=== PATIENT | male | born 1935 | race Caucasian/White ===

== ENCOUNTER → 2023-06-05 06:04 | Outpatient (REF) | payer MEDICARE, SELFPAY ==
[2023-06-05 10:19] LABS: INR 1.71; PT 20.4 Sec (11.4-14.6)
== END ==
LOC: HWLAB 06:04
PROVIDERS: ATTENDING PHYSICIAN Internal Medicine Cardiovascular Disease; FAMILY PHYSICIAN Family Medicine
DX: I48.19 Other persistent atrial fibrillation (principal)
CPT/HCPCS: 36415; 85610

== ENCOUNTER → 2023-06-12 06:05 | Outpatient (REF) | payer MEDICARE, SELFPAY ==
[2023-06-12 10:22] LABS: INR 1.88; PT 21.5 Sec (11.4-14.6)
== END ==
LOC: HWLAB 06:05
PROVIDERS: ATTENDING PHYSICIAN Internal Medicine Cardiovascular Disease; FAMILY PHYSICIAN Family Medicine
DX: I48.19 Other persistent atrial fibrillation (principal)
CPT/HCPCS: 36415; 85610

== ENCOUNTER → 2023-06-19 06:05 | Outpatient (REF) | payer MEDICARE, SELFPAY ==
[2023-06-19 14:50] LABS: INR 2.38; PT 25.9 Sec (11.4-14.6)
== END ==
LOC: HWLAB 06:05
PROVIDERS: ATTENDING PHYSICIAN Internal Medicine Cardiovascular Disease; FAMILY PHYSICIAN Family Medicine
DX: I48.19 Other persistent atrial fibrillation (principal)
CPT/HCPCS: 36415; 85610

== ENCOUNTER → 2023-06-26 10:10 | Outpatient (REF) | payer MEDICARE, SELFPAY ==
[2023-06-26 12:00] LABS: INR 2.67; PT 28.3 Sec (11.4-14.6)
== END ==
LOC: HWLAB 10:10
PROVIDERS: ATTENDING PHYSICIAN Internal Medicine; FAMILY PHYSICIAN Family Medicine
DX: I48.91 Unspecified atrial fibrillation (principal)
CPT/HCPCS: 36415; 85610

== ENCOUNTER → 2023-07-03 06:02 | Outpatient (REF) | payer MEDICARE, SELFPAY ==
[2023-07-03 09:55] LABS: INR 2.57; PT 27.5 Sec (11.4-14.6)
== END ==
LOC: HWLAB 06:02
PROVIDERS: ATTENDING PHYSICIAN Internal Medicine Cardiovascular Disease; FAMILY PHYSICIAN Family Medicine
DX: I48.19 Other persistent atrial fibrillation (principal)
CPT/HCPCS: 36415; 85610

== ENCOUNTER → 2023-07-10 06:03 | Outpatient (REF) | payer MEDICARE, SELFPAY ==
[2023-07-10 09:21] LABS: INR 2.22; PT 24.4 Sec (11.4-14.6)
== END ==
LOC: HWLAB 06:03
PROVIDERS: ATTENDING PHYSICIAN Internal Medicine Cardiovascular Disease; FAMILY PHYSICIAN Family Medicine
DX: I48.19 Other persistent atrial fibrillation (principal)
CPT/HCPCS: 36415; 85610

== ENCOUNTER → 2023-08-03 10:23 | Outpatient (REF) | payer MEDICARE, SELFPAY | LOC: HWRAD 10:23 | PROVIDERS: ATTENDING PHYSICIAN Internal Medicine Rheumatology; FAMILY PHYSICIAN Family Medicine | DX: M06.09 Rheumatoid arthritis without rheumatoid factor, multiple sites (principal) | CPT/HCPCS: 72052; 73560 ==

== ENCOUNTER → 2023-08-07 06:27 | Outpatient (REF) | payer MEDICARE, SELFPAY ==
[2023-08-07 09:44] LABS: INR 2.85; PT 29.9 Sec (11.4-14.6)
== END ==
LOC: HWRAD 06:27
PROVIDERS: ATTENDING PHYSICIAN Internal Medicine Rheumatology; FAMILY PHYSICIAN Family Medicine; REFERRING PHYSICIAN Internal Medicine Cardiovascular Disease
DX: M81.0 Age-related osteoporosis without current pathological fracture (principal); I48.19 Other persistent atrial fibrillation
CPT/HCPCS: 36415; 77080; 85610

== ENCOUNTER → 2023-09-04 06:10 | Outpatient (REF) | payer MEDICARE, SELFPAY ==
[2023-09-04 09:19] LABS: PT 24.3 Sec (11.4-14.6)
== END ==
LOC: HWLAB 06:10
PROVIDERS: ATTENDING PHYSICIAN Internal Medicine Cardiovascular Disease; FAMILY PHYSICIAN Family Medicine
DX: I48.19 Other persistent atrial fibrillation (principal)
CPT/HCPCS: 36415; 85610

== ENCOUNTER → 2023-09-20 06:02 | Outpatient (REF) | payer MEDICARE, SELFPAY ==
[2023-09-20 10:15] LABS: ALT (SGPT) 21 U/L (0-50); AST (SGOT) 26 U/L (17-59); Albumin 3.6 g/dl (3.5-5.0); Alkaline Phosphatase 86 U/L (38-126); Blood Urea Nitrogen 27 mg/dl (9-20); Carbon Dioxide 25 mmol/L (22-30); Chloride 106 mmol/L (98-107); Glucose 82 mg/dl (70-99); Potassium 4.5 mmol/L (3.5-5.1); Sodium 139 mmol/L (135-145); Total Bilirubin 0.6 mg/dl (0.2-1.3); Total Protein 6.2 g/dl (6.3-8.2)
[2023-09-20 10:44] LABS: TSH Reflex To Free T4 8.58 uIU/ml (0.47-4.68)
[2023-09-20 11:13] LABS: Free T4 1.17 ng/dl (0.78-2.19)
== END ==
LOC: HWLAB 06:02
PROVIDERS: ATTENDING PHYSICIAN Internal Medicine Cardiovascular Disease; FAMILY PHYSICIAN Family Medicine
DX: I48.19 Other persistent atrial fibrillation (principal); Z79.899 Other long term (current) drug therapy
CPT/HCPCS: 36415; 80053; 84439; 84443

== ENCOUNTER → 2023-09-25 06:02 | Outpatient (REF) | payer MEDICARE, SELFPAY ==
[2023-09-25 09:27] LABS: INR 2.35; PT 25.6 Sec (11.4-14.6)
== END ==
LOC: HWLAB 06:02
PROVIDERS: ATTENDING PHYSICIAN Internal Medicine Cardiovascular Disease; FAMILY PHYSICIAN Family Medicine
DX: I48.19 Other persistent atrial fibrillation (principal)
CPT/HCPCS: 36415; 85610

== ENCOUNTER → 2023-10-23 06:02 | Outpatient (REF) | payer MEDICARE, SELFPAY ==
[2023-10-23 10:46] LABS: INR 2.06; PT 23.1 Sec (11.4-14.6)
== END ==
LOC: HWLAB 06:02
PROVIDERS: ATTENDING PHYSICIAN Internal Medicine Cardiovascular Disease; FAMILY PHYSICIAN Family Medicine
DX: I48.0 Paroxysmal atrial fibrillation (principal); I48.19 Other persistent atrial fibrillation
CPT/HCPCS: 36415; 85610

== ENCOUNTER → 2023-11-20 06:04 | Outpatient (REF) | payer MEDICARE, SELFPAY ==
[2023-11-20 10:00] LABS: INR 3.08; PT 31.8 Sec (11.4-14.6)
== END ==
LOC: HWLAB 06:04
PROVIDERS: ATTENDING PHYSICIAN Internal Medicine Cardiovascular Disease; FAMILY PHYSICIAN Family Medicine
DX: I48.0 Paroxysmal atrial fibrillation (principal)
CPT/HCPCS: 36415; 85610

== ENCOUNTER → 2023-12-18 06:05 | Outpatient (REF) | payer MEDICARE, SELFPAY ==
[2023-12-18 09:51] LABS: INR 3.58; PT 35.8 Sec (11.4-14.6)
== END ==
LOC: HWLAB 06:05
PROVIDERS: ATTENDING PHYSICIAN Internal Medicine Cardiovascular Disease; FAMILY PHYSICIAN Family Medicine
DX: I48.19 Other persistent atrial fibrillation (principal)
CPT/HCPCS: 36415; 85610

== ENCOUNTER → 2023-12-25 06:05 | Outpatient (REF) | payer MEDICARE, SELFPAY ==
[2023-12-25 09:15] LABS: INR 3.03; PT 31.4 Sec (11.4-14.6)
== END ==
LOC: HWLAB 06:05
PROVIDERS: ATTENDING PHYSICIAN Internal Medicine Cardiovascular Disease; FAMILY PHYSICIAN Family Medicine
DX: I48.19 Other persistent atrial fibrillation (principal)
CPT/HCPCS: 36415; 85610

== ENCOUNTER → 2024-01-01 06:03 | Outpatient (REF) | payer MEDICARE, SELFPAY ==
[2024-01-01 09:44] LABS: INR 2.31; PT 25.3 Sec (11.4-14.6)
== END ==
LOC: HWLAB 06:03
PROVIDERS: ATTENDING PHYSICIAN Internal Medicine Cardiovascular Disease; FAMILY PHYSICIAN Family Medicine
DX: I48.19 Other persistent atrial fibrillation (principal)
CPT/HCPCS: 36415; 85610

== ENCOUNTER → 2024-01-08 06:03 | Outpatient (REF) | payer MEDICARE, SELFPAY ==
[2024-01-08 10:38] LABS: PT 24.3 Sec (11.4-14.6)
== END ==
LOC: HWLAB 06:03
PROVIDERS: ATTENDING PHYSICIAN Internal Medicine Cardiovascular Disease; FAMILY PHYSICIAN Family Medicine
DX: I48.19 Other persistent atrial fibrillation (principal)
CPT/HCPCS: 36415; 85610

== ENCOUNTER → 2024-01-15 06:04 | Outpatient (REF) | payer MEDICARE, SELFPAY ==
[2024-01-15 09:42] LABS: INR 2.28
== END ==
LOC: HWLAB 06:04
PROVIDERS: ATTENDING PHYSICIAN Internal Medicine Cardiovascular Disease; FAMILY PHYSICIAN Family Medicine
DX: I48.19 Other persistent atrial fibrillation (principal)
CPT/HCPCS: 36415; 85610

== ENCOUNTER → 2024-02-12 06:04 | Outpatient (REF) | payer MEDICARE, SELFPAY ==
[2024-02-12 10:08] LABS: PT 24.3 Sec (11.4-14.6)
== END ==
LOC: HWLAB 06:04
PROVIDERS: ATTENDING PHYSICIAN Internal Medicine Cardiovascular Disease; FAMILY PHYSICIAN Family Medicine
DX: I48.19 Other persistent atrial fibrillation (principal)
CPT/HCPCS: 36415; 85610

== ENCOUNTER → 2024-03-11 06:03 | Outpatient (REF) | payer MEDICARE, SELFPAY ==
[2024-03-11 10:23] LABS: INR 2.36; PT 25.7 Sec (11.4-14.6)
== END ==
LOC: HWLAB 06:03
PROVIDERS: ATTENDING PHYSICIAN Internal Medicine Cardiovascular Disease; FAMILY PHYSICIAN Family Medicine
DX: I48.19 Other persistent atrial fibrillation (principal)
CPT/HCPCS: 36415; 85610

== ENCOUNTER → 2024-04-08 06:04 | Outpatient (REF) | payer MEDICARE, SELFPAY ==
[2024-04-08 09:53] LABS: INR 2.43; PT 26.5 Sec (11.4-14.6)
== END ==
LOC: HWLAB 06:04
PROVIDERS: ATTENDING PHYSICIAN Internal Medicine Cardiovascular Disease; FAMILY PHYSICIAN Family Medicine
DX: I48.19 Other persistent atrial fibrillation (principal)
CPT/HCPCS: 36415; 85610

== ENCOUNTER → 2024-05-05 06:10 | Outpatient (REF) | payer MEDICARE, SELFPAY ==
[2024-05-05 09:30] LABS: Urine Albumin Negative (Neg - Trace); Urine Bilirubin Negative (Negative); Urine Character Very Cloudy (Clear); Urine Color Yellow; Urine Glucose Negative (Negative); Urine Ketone Negative (Negative); Urine Leukocyte 1+ (Negative); Urine Nitrite Negative (Negative); Urine Occult Blood Negative (Negative); Urine Urobilinogen Negative (Neg - 1+)
[2024-05-05 09:37] LABS: ALT (SGPT) 29 U/L (0-50); AST (SGOT) 28 U/L (17-59); Albumin 3.9 g/dl (3.5-5.0); Alkaline Phosphatase 80 U/L (38-126); Blood Urea Nitrogen 27 mg/dl (9-20); Calcium 8.7 mg/dl (8.4-10.2); Carbon Dioxide 28 mmol/L (22-30); Chloride 107 mmol/L (98-107); Glucose 88 mg/dl (70-99); HDL Cholesterol 65 mg/dl; LDL Cholesterol, Calculated 43 mg/dl; PT 31.5 Sec (11.4-14.6); Potassium 4.4 mmol/L (3.5-5.1); Sodium 142 mmol/L (135-145); Total Bilirubin 0.5 mg/dl (0.2-1.3); Total Cholesterol 123 mg/dl (50-199); Total Protein 6.4 g/dl (6.3-8.2); Triglyceride 75 mg/dl (10-149); Very Low Density Lipoprotein 15 mg/dl (0-30); eGFR 41.44
[2024-05-05 09:54] LABS: % Basophils 0.5 % (0-2); % Eosinophils 1.8 % (0-6); % Immature Granulocytes 0.4 % (0-0.5); % Lymphocytes 18.4 % (20.5-51.1); % Monocytes 9.3 % (1.7-9.3); % Neutrophils 69.6 % (42.2-75.2); Absolute Eosinophils 0.1 10^3/uL (0-0.7); Absolute Lymphocytes 1.4 10^3/uL (1.2-3.4); Absolute Monocytes 0.7 10^3/uL (0.1-0.6); Absolute Neutrophils 5.3 10^3/uL (1.4-6.5); Hematocrit 35.7 % (39.0-52.0); Hemoglobin 11.6 g/dL (13.0-18.0); Mean Corp Hgb Conc. 32.5 g/dL (33.0-37.0); Mean Corpuscular Hgb 33.7 pg (27.0-31.0); Mean Corpuscular Volume 103.8 fL (80.0-94.0); Nucleated Red Blood Cells % 0 % (-); Platelet Count 171 10^3/uL (130-400); Red Blood Cell Count 3.44 10^6/uL (4.70-6.10); Red Cell Dist. Width 12.5 % (11.5-14.5); White Blood Cell Count 7.7 10^3/uL (4.8-10.8)
[2024-05-05 10:19] LABS: Glycohemoglobin (HgbA1c) 5.5 % (4.0-5.6)
[2024-05-05 10:39] LABS: Urine Bacteria Few (Negative); Urine Red Blood Cell 0-2 /HPF (0-2); Urine Squamous Cell 0-2 /LPF (Few); Urine White Cell 26-30 /HPF (0-5)
[2024-05-05 11:03] LABS: PSA, Total - Screen 0.67 ng/ml (0.0-4.0)
[2024-05-05 11:31] LABS: Free T4 1.14 ng/dl (0.78-2.19)
== END ==
LOC: HWLAB 06:10
PROVIDERS: ATTENDING PHYSICIAN Internal Medicine Cardiovascular Disease; FAMILY PHYSICIAN Family Medicine
DX: I10 Essential (primary) hypertension (principal); D64.9 Anemia, unspecified; E03.9 Hypothyroidism, unspecified; I25.10 Atherosclerotic heart disease of native coronary artery without angina pectoris; M05.79 Rheumatoid arthritis with rheumatoid factor of multiple sites without organ or systems involvement; E78.5 Hyperlipidemia, unspecified; R73.01 Impaired fasting glucose; Z00.01 Encounter for general adult medical examination with abnormal findings; I48.19 Other persistent atrial fibrillation; Z12.5 Encounter for screening for malignant neoplasm of prostate
CPT/HCPCS: 36415; 80053; 80061; 81003; 81015; 82306; 83036; 84439; 84443; 85025; 85610; 87077; 87086; 87186; G0103

== ENCOUNTER → 2024-05-27 11:16 | Outpatient (REF) | payer MEDICARE, SELFPAY | LOC: HWRCS 11:16 | PROVIDERS: ATTENDING PHYSICIAN Internal Medicine Cardiovascular Disease; FAMILY PHYSICIAN Internal Medicine | DX: I50.32 Chronic diastolic (congestive) heart failure (principal); I34.0 Nonrheumatic mitral (valve) insufficiency | CPT/HCPCS: 93306 ==

== ENCOUNTER → 2024-06-05 06:04 | Outpatient (REF) | payer MEDICARE, SELFPAY ==
[2024-06-05 10:30] LABS: PT 24.9 Sec (11.4-14.6)
== END ==
LOC: HWLAB 06:04
PROVIDERS: ATTENDING PHYSICIAN Internal Medicine Cardiovascular Disease; FAMILY PHYSICIAN Family Medicine
DX: I48.19 Other persistent atrial fibrillation (principal)
CPT/HCPCS: 36415; 85610

== ENCOUNTER → 2024-06-17 06:06 | Outpatient (REF) | payer MEDICARE, SELFPAY ==
[2024-06-17 10:17] LABS: % Basophils 0.5 % (0-2); % Eosinophils 2.7 % (0-6); % Immature Granulocytes 0.3 % (0-0.5); % Lymphocytes 19.3 % (20.5-51.1); % Monocytes 8.8 % (1.7-9.3); % Neutrophils 68.4 % (42.2-75.2); Absolute Eosinophils 0.2 10^3/uL (0-0.7); Absolute Lymphocytes 1.2 10^3/uL (1.2-3.4); Absolute Monocytes 0.6 10^3/uL (0.1-0.6); Absolute Neutrophils 4.4 10^3/uL (1.4-6.5); Hematocrit 32.6 % (39.0-52.0); Hemoglobin 10.6 g/dL (13.0-18.0); Mean Corp Hgb Conc. 32.5 g/dL (33.0-37.0); Mean Corpuscular Hgb 33.1 pg (27.0-31.0); Mean Corpuscular Volume 101.9 fL (80.0-94.0); Mean Platelet Volume 11.1 fL (7.4-10.4); Nucleated Red Blood Cells % 0 % (-); Platelet Count 183 10^3/uL (130-400); Red Cell Dist. Width 12.5 % (11.5-14.5); White Blood Cell Count 6.4 10^3/uL (4.8-10.8)
[2024-06-17 11:26] LABS: TSH Reflex To Free T4 9.03 uIU/ml (0.47-4.68)
[2024-06-17 11:31] LABS: Blood Urea Nitrogen 29 mg/dl (9-20); Calcium 8.7 mg/dl (8.4-10.2); Carbon Dioxide 24 mmol/L (22-30); Chloride 108 mmol/L (98-107); Glucose 83 mg/dl (70-99); Potassium 4.5 mmol/L (3.5-5.1); Sodium 140 mmol/L (135-145); eGFR 41.44
[2024-06-17 11:56] LABS: Free T4 1.39 ng/dl (0.78-2.19)
== END ==
LOC: HWLAB 06:06
PROVIDERS: ATTENDING PHYSICIAN Family Medicine
DX: D64.9 Anemia, unspecified (principal); R94.6 Abnormal results of thyroid function studies
CPT/HCPCS: 36415; 80048; 84439; 84443; 85025

== ENCOUNTER → 2024-07-03 06:07 | Outpatient (REF) | payer MEDICARE, SELFPAY ==
[2024-07-03 09:55] LABS: Iron 108 ug/dl (49-181)
[2024-07-03 09:56] LABS: % Basophils 0.7 % (0-2); % Eosinophils 2.4 % (0-6); % Immature Granulocytes 0.5 % (0-0.5); % Lymphocytes 20.6 % (20.5-51.1); % Monocytes 11.5 % (1.7-9.3); % Neutrophils 64.3 % (42.2-75.2); Absolute Eosinophils 0.1 10^3/uL (0-0.7); Absolute Lymphocytes 1.2 10^3/uL (1.2-3.4); Absolute Monocytes 0.7 10^3/uL (0.1-0.6); Absolute Neutrophils 3.8 10^3/uL (1.4-6.5); Hematocrit 33.6 % (39.0-52.0); Mean Corp Hgb Conc. 32.7 g/dL (33.0-37.0); Mean Corpuscular Hgb 33.3 pg (27.0-31.0); Mean Corpuscular Volume 101.8 fL (80.0-94.0); Mean Platelet Volume 10.9 fL (7.4-10.4); Nucleated Red Blood Cells % 0 % (-); Platelet Count 164 10^3/uL (130-400); Red Cell Dist. Width 12.5 % (11.5-14.5); White Blood Cell Count 5.9 10^3/uL (4.8-10.8)
[2024-07-03 10:05] LABS: INR 1.74; PT 20.9 Sec (11.4-14.6)
[2024-07-03 11:10] LABS: Ferritin 44.2 ng/ml (17.9-464.0)
[2024-07-03 11:32] LABS: Free T4 1.26 ng/dl (0.78-2.19)
== END ==
LOC: HWLAB 06:07
PROVIDERS: ATTENDING PHYSICIAN Internal Medicine Cardiovascular Disease; FAMILY PHYSICIAN Family Medicine
DX: D64.9 Anemia, unspecified (principal); E03.9 Hypothyroidism, unspecified; I48.19 Other persistent atrial fibrillation
CPT/HCPCS: 36415; 82728; 83540; 84439; 84443; 85025; 85610

== ENCOUNTER → 2024-08-05 06:25 | Outpatient (REF) | payer MEDICARE, SELFPAY ==
[2024-08-05 09:38] LABS: INR 2.42; PT 26.3 Sec (11.4-14.6)
[2024-08-05 10:00] LABS: TSH Reflex To Free T4 5.78 uIU/ml (0.47-4.68)
[2024-08-05 10:29] LABS: Free T4 1.45 ng/dl (0.78-2.19)
== END ==
LOC: HWLAB 06:25
PROVIDERS: ATTENDING PHYSICIAN Internal Medicine Cardiovascular Disease; FAMILY PHYSICIAN Family Medicine
DX: E03.9 Hypothyroidism, unspecified (principal); I48.19 Other persistent atrial fibrillation
CPT/HCPCS: 36415; 84439; 84443; 85610

== ENCOUNTER → 2024-09-02 06:10 | Outpatient (REF) | payer MEDICARE, SELFPAY ==
[2024-09-02 09:42] LABS: PT 26.2 Sec (11.4-14.6)
== END ==
LOC: HWLAB 06:10
PROVIDERS: ATTENDING PHYSICIAN Internal Medicine Cardiovascular Disease; FAMILY PHYSICIAN Family Medicine
DX: I48.19 Other persistent atrial fibrillation (principal)
CPT/HCPCS: 36415; 85610

== ENCOUNTER → 2024-09-15 06:07 | Outpatient (REF) | payer MEDICARE, SELFPAY ==
[2024-09-15 09:46] LABS: % Basophils 0.5 % (0-2); % Eosinophils 2.1 % (0-6); % Immature Granulocytes 0.2 % (0-0.5); % Monocytes 10.6 % (1.7-9.3); % Neutrophils 64.6 % (42.2-75.2); Absolute Eosinophils 0.1 10^3/uL (0-0.7); Absolute Lymphocytes 1.3 10^3/uL (1.2-3.4); Absolute Monocytes 0.6 10^3/uL (0.1-0.6); Absolute Neutrophils 3.7 10^3/uL (1.4-6.5); Hematocrit 31.1 % (39.0-52.0); Hemoglobin 10.5 g/dL (13.0-18.0); Mean Corp Hgb Conc. 33.8 g/dL (33.0-37.0); Mean Corpuscular Hgb 33.5 pg (27.0-31.0); Mean Corpuscular Volume 99.4 fL (80.0-94.0); Mean Platelet Volume 10.7 fL (7.4-10.4); Nucleated Red Blood Cells % 0 % (-); Platelet Count 165 10^3/uL (130-400); Red Blood Cell Count 3.13 10^6/uL (4.70-6.10); Red Cell Dist. Width 12.4 % (11.5-14.5); White Blood Cell Count 5.7 10^3/uL (4.8-10.8)
[2024-09-15 10:05] LABS: ALT (SGPT) 18 U/L (0-50); AST (SGOT) 22 U/L (17-59); Albumin 3.8 g/dl (3.5-5.0); Alkaline Phosphatase 74 U/L (38-126); Blood Urea Nitrogen 28 mg/dl (9-20); Calcium 8.5 mg/dl (8.4-10.2); Carbon Dioxide 27 mmol/L (22-30); Chloride 107 mmol/L (98-107); Glucose 83 mg/dl (70-99); HDL Cholesterol 58 mg/dl; LDL Cholesterol, Calculated 38 mg/dl; Potassium 4.4 mmol/L (3.5-5.1); Sodium 141 mmol/L (135-145); Total Bilirubin 0.6 mg/dl (0.2-1.3); Total Cholesterol 112 mg/dl (50-199); Triglyceride 81 mg/dl (10-149); Very Low Density Lipoprotein 16 mg/dl (0-30); eGFR 44.78
[2024-09-15 10:29] LABS: PSA, Total - Screen 0.72 ng/ml (0.0-4.0)
[2024-09-15 13:24] LABS: Glycohemoglobin (HgbA1c) 5.5 % (4.0-5.6)
== END ==
LOC: HWLAB 06:07
PROVIDERS: ATTENDING PHYSICIAN Family Medicine
DX: I10 Essential (primary) hypertension (principal); D64.9 Anemia, unspecified; E03.9 Hypothyroidism, unspecified; I25.10 Atherosclerotic heart disease of native coronary artery without angina pectoris; E78.5 Hyperlipidemia, unspecified; Z12.5 Encounter for screening for malignant neoplasm of prostate
CPT/HCPCS: 36415; 80053; 80061; 83036; 84443; 85025; G0103

== ENCOUNTER → 2024-09-30 06:13 | Outpatient (REF) | payer MEDICARE, SELFPAY ==
[2024-09-30 10:27] LABS: INR 2.49
== END ==
LOC: HWLAB 06:13
PROVIDERS: ATTENDING PHYSICIAN Internal Medicine Cardiovascular Disease
DX: I48.19 Other persistent atrial fibrillation (principal)
CPT/HCPCS: 36415; 85610

== ENCOUNTER → 2024-10-28 06:07 | Outpatient (REF) | payer MEDICARE, SELFPAY ==
[2024-10-28 08:52] LABS: INR 2.34; PT 25.7 Sec (11.4-14.6)
== END ==
LOC: HWLAB 06:07
PROVIDERS: ATTENDING PHYSICIAN Internal Medicine Cardiovascular Disease
DX: I48.19 Other persistent atrial fibrillation (principal)
CPT/HCPCS: 36415; 85610

== ENCOUNTER → 2024-11-04 11:06 | Outpatient (REF) | payer MEDICARE, SELFPAY | LOC: HWRAD 11:06 | PROVIDERS: ATTENDING PHYSICIAN Internal Medicine Rheumatology | DX: M89.49 Other hypertrophic osteoarthropathy, multiple sites (principal) | CPT/HCPCS: 72100; 72200 ==

== ENCOUNTER 2024-11-23 05:52 | Emergency (ER) | payer MEDICARE, SELFPAY ==
[2024-11-23 05:56] VITALS: BP 164/75
--- NOTE | 2024-11-23 08:08 | ED.GENMED ---
History of Present Illness
General
Chief Complaint: Back Pain
Source: patient and family (son Derick)
Exam Limitations: none
Time Seen by Provider: 11/23/24 07:20
Nursing documentation reviewed up to this point in time: agreed with
History of Present Illness
History of Present Illness:
89 yo male with h/o LAD stent, on Coumadin, GERD, Hypothyroid, Anemia, Neuorgenic bladder: self catheterizes 2 x a day, Laminectomy L4-5 1967, Discectomy 1988, Bilat hip replacement 2003, L4-5 laminectomy 2006, L knee replacement 2017. Pt present
for pain across his lower back since 10/29 after a fall on steps. The pain is reported to be 8 out of 10 in severity. The patient describes the pain as dull and aching, primarily located in the lower back area. It exacerbates when transitioning from
a resting position, such as lying in bed, to sitting up. He has trouble getting out of bed mostly. The patient notes that sitting in a recliner provides some relief while lying down and attempting to get up is particularly painful.
Denies fever. Denies abdominal pain.
Saw PCP and has appt for MRI in 6 days. Also got rx for Prednisone taper but he does not want to use it due to the side effect of reacting with the Coumadin possibly increased bleeding with stroke.
Has >8 yr old rx for Hydrocodone which he took one pill and it helped for 'about 4 hours.' He does not want to take more for fear of constipation.
Spoke with son Derick, updated.
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
Pt has taken Miralax twice since then and has had several good BMs.
Past History
Past History
ED Past Medical History: CAD, GERD, HTN, Hypercholesterolemia, Hypothyroidism and Other (Arthritis)
ED Past Surgical History: Cardiac (PTCA with stent 2013) and Orthopedic (Laminectomy L4-5 1967, Discectomy 1988, Bilat hip replacement 2003, L4-5 laminectomy 2006, L knee replacement 2018. )
Patient has exhibited threatening behavior?: No
PSI?: No
Social History
Tobacco: Non-smoker
Alcohol: None
Personal:
Living: with family
Employment: Retired
Family History
Family History: Other (Noncontributory)
Review of Systems
Review of Systems
Allergies reviewed?: Yes
All Other Systems: ROS reviewed and negative except as documented in HPI and ROS
Constitutional: Denies fever or chills
Respiratory: Denies trouble breathing
Cardiac: Denies chest pain
ABD/GI: Denies abdominal pain or nausea
: Reports other (neurogenic bladder, self catheterizes twice daily)
Musculoskeletal: Reports back pain; Denies edema
Skin: Reports no symptoms
Neurological: Denies weakness
Phy Exam
Physical Exam
Physical Exam:
GENERAL: No acute distress. A&Ox3.
CONSTITUTIONAL: Afebrile.
EYES: clear, conjunctivae normal
ENMT: moist mucus membranes, Pharynx nl
RESPIRATORY: Regular respirations, nonlabored, lungs clear.
CARDIOVASCULAR: Regular rate and rhythm, no murmurs, no rubs.
GI: Soft, nontender, normal BS
Rectal: minimal soft brown stool, heme neg
MUSCULOSKELETAL: Moves with ease. Well perfused. Mild tenderness across lower back, no specific spinal bony tenderness. Neg bilateral SLR.
SKIN: Warm, dry, pink
PSYCH: Normal mood and affect. Well kept, interactive and appropriate
NEUROLOGIC: Awake, alert and oriented. No focal neurological deficits. Strength equal throughout. Equal patellare reflexes. Ambulating well.
Course
Orders/Labs/Results
Orders:
Orders
11/23/24 08:33
Case Management Consult ONCE
Case Management Consult: Discharge Planning
Durable Medical Equip
Comment: Pt and family need hospital bed and are asking for help in obtaining one. He is ready for
discharge...son on way to pick him up, hoping to speak with you.
11/23/24 08:54
Acetaminophen Urgent
Comment: ADDON
Complete Blood Count/With Diff Urgent
Comprehensive Metabolic Panel Urgent
Prothrombin Time Urgent
11/23/24 09:09
Dexamethasone [Decadron] 10 mg PO NOW STA
11/23/24 09:44
Add On- LAB Urgent
Tests Added?: acetaminophen level
Abnormal Lab Results
11/23/24
08:54
RBC 2.84 L 10^6/uL
(4.70-6.10)
Hgb 9.5 L g/dL
(13.0-18.0)
Hct 27.6 L %
(39.0-52.0)
MCV 97.2 H fL
(80.0-94.0)
MCH 33.5 H pg
(27.0-31.0)
Absolute Neuts (auto) 6.6 H 10^3/uL
(1.4-6.5)
Absolute Lymphs (auto) 0.8 L 10^3/uL
(1.2-3.4)
Neutrophils % 82.0 H %
(42.2-75.2)
Lymphocytes % 10.3 L %
(20.5-51.1)
PT 58.5 H Sec
(11.4-14.6)
INR 6.92 H*
Sodium 133 L mmol/L
(135-145)
Total Protein 5.7 L g/dl
(6.3-8.2)
Albumin 3.2 L g/dl
(3.5-5.0)
Acetaminophen < 10 L ug/ml
(10-30)
11/23/24 08:54
11/23/24 08:54
Vital Signs
Initial and Last Documented VS:
Initial Vital Signs
Temp Pulse Resp BP Pulse Ox
98.2 F 72 16 164/75 97
11/23/24 05:56 11/23/24 05:56 11/23/24 05:56 11/23/24 05:56 11/23/24 05:56
Last Documented Vital Signs
Temp Pulse Resp BP Pulse Ox
98.4 F 74 18 124/74 98
11/23/24 11:18 11/23/24 11:18 11/23/24 11:18 11/23/24 11:18 11/23/24 11:18
MDM/Problems Addressed
Differential Diagnosis Includes:
1. Lumbar disc herniation
2. Lumbar spondylosis
3. Sciatica
4. Spinal stenosis
5. Osteoarthritis
6. Compression fracture
7. Muscle strain
8. Facet joint syndrome
9. Ankylosing spondylitis
10. Metastatic bone disease
MDM/Problems Addressed:
89 yo male with h/o LAD stent, on Coumadin, GERD, Hypothyroid, Anemia, Neuorgenic bladder: self catheterizes 2 x a day, Laminectomy L4-5 1967, Discectomy 1988, Bilat hip replacement 2003, L4-5 laminectomy 2006, L knee replacement 2018. Pt present
for pain across his lower back since 10/29 after a fall on steps. The pain is reported to be 8 out of 10 in severity. The patient describes the pain as dull and aching, primarily located in the lower back area. It exacerbates when transitioning from
a resting position, such as lying in bed, to sitting up. He has trouble getting out of bed mostly. The patient notes that sitting in a recliner provides some relief while lying down and attempting to get up is particularly painful.
Denies fever. Denies abdominal pain.
Saw PCP and has appt for MRI in 6 days. Also got rx for Prednisone taper but he does not want to use it due to the side effect of reacting with the Coumadin possibly increased bleeding with stroke.
Has >8 yr old rx for Hydrocodone which he took one pill and it helped for 'about 4 hours.' He does not want to take more for fear of constipation.
Has been taking Tylenol 1200 mg TID for past 2 months
Spoke with son Derick, daxa.
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
Pt has taken Miralax twice since then and has had several good BMs.
Afebrile, NAD
Pt got out of bed, ambulated to BR and back, got back into bed independently and with no significant indication of pain. He winced a little swinging his legs back up into the bed. He felt the pain going from sit to stand off toilet but nothing
significant. All this while I was with him.
spoke with son Derick who requests help in obtaining hospital bed for home. His PCP reportedly filled out the paperwork
Consulted Case Management who sent a copy of medical necessity
CBC with no clinically significant abnormality (Hgb 9.5, stool heme neg.)
CMP: Normal
INR: 6.92 (On Coumadin and has been taking 1200 mg Tylenol TID for past 2 months, denies taking more than 3600 mg in a 24 hours period, denies any confusion over his coumadin regimen, denies eating any food that would affect INR)
DC'd Decadron order as this can increase INR
There is no sign of bleeding, stool heme neg.
Case management in and working on getting a home hospital bed
Tylenol level is <10
11:00 a.m.
Tyenol level is '0'
Plan: Stop Coumadin (Warfarin)
Get INR checked on 11/[address] Childs to have someone from office reach out to you regarding your INR on Sunday and further instruction on taking the Warfarin. If you don't hear from them by Sunday, call the office Sunday morning
I sent a prescription to your pharmacy for OxyContin 5 mg every 8 hours as needed for pain.
Your Tylenol level is zero. It is not the Tylenol affecting your liver. Ask you primary doctor or [employer] if it's ok to continue Tylenol
According to [employer], your hospital bed should be delivered Sunday IF insurance approves
Medical Request for home hospital bed: Pt needs hospital bed due to inability to get OOB due to low back pain. He requires positioning of body in ways not feasible with an ordinary bed and needs alleviation of pain
*Pulse Oximetry
SaO2: 97
Oxygen Mode of Delivery: Room air
Patient hypoxic: no
*Critical Care Note
Total Time (30-74mins, 75-104mins- exclusive of procedures): Not Applicable
ED Attending Note
-
Portions of this chart may have been created with voice recognition software.� Occasional wrong word or��sound alike� substitutions may have occurred due to the inherent limitations of voice recognition software.
Discharge Plan
Departure
Patient Disposition: Home (Routine Discharge)
Date of Disposition: 11/23/24
Time of Disposition: 10:58
Patient with high blood pressure during this ER visit?: No
Condition: Good
Discharge Problem:
Coumadin toxicity, Low back pain
Instructions: Prothrombin time and INR (PT/INR), Low back pain - ED discharge instructions
Prescriptions:
New
oxycodone 5 mg capsule
5 mg PO Q8H PRN (Reason: Pain) Qty: 10 0RF
No Action
atorvastatin 40 MG tablet
40 mg PO DAILY
pantoprazole 40 MG tablet,delayed release (DR/EC)
40 mg PO DAILY
latanoprost 0.005 % Drops
1 drp LEFT EYE HS
furosemide 40 mg Tablet
40 mg PO DAILY Qty: 30 0RF
amiodarone [Pacerone] 200 mg tablet
200 mg PO DAILY
metoprolol succinate 50 mg Tablet Extended Release 24 Hr
50 mg PO DAILY
warfarin 2.5 mg Tablet
2.5 mg PO DAILY
Rx Instructions:
Two tabs (5mg) on Sundays
spironolactone 25 mg Tablet
25 mg PO DAILY
tamsulosin 0.4 mg Capsule
0.4 mg PO DAILY
levothyroxine 112 mcg Tablet
112 mcg PO DAILY
sulfamethoxazole-trimethoprim 800-160 mg Tablet
1 tab PO BID 4 Days Qty: 8 0RF
ferrous sulfate 325 mg (65 mg iron) tablet
325 mg PO NOON Qty: 30 0RF
ascorbic acid (vitamin C) [Vitamin C] 500 mg tablet
500 mg PO NOON Qty: 30 0RF
Referrals:
Colton Lee CRNP [Family Provider]
Activity Restrictions/Additional Instructions:
As we discussed:
Stop Coumadin (Warfarin)
Get INR checked on 11/[address] Childs to have someone from office reach out to you regarding your INR on Sunday and further instruction on taking the Warfarin. If you don't hear from them by Sunday, call the office Sunday
I sent a prescription to your pharmacy for OxyContin 5 mg every 8 hours as needed for pain.
Your Tylenol level is zero. It is not the Tylenol affecting your liver. Ask you primary doctor or [employer] if it's ok to continue Tylenol
According to [employer], your hospital bed should be delivered Sunday IF insurance approves
Interventions
Interventions:
*Risk Screen - Suicide Last Done: 11/23/24 05:56
*General Assessment Last Done: 11/23/24 05:56
*Neglect/Abuse Screening Last Done: 11/23/24 05:56
*ED- Fall Risk Assessment Last Done: 11/23/24 11:18
*ED COVID-19 Vaccine History Last Done: 11/23/24 11:18
*Nursing Disposition Last Done: 11/23/24 11:18
ED-Musculoskeletal Assessment Last Done: 11/23/24 08:13
Discharge Date and Time
Discharge Date/Time: 11/23/24 11:18
Print Language: ALBANIAN
[2024-11-23 09:14] LABS: Hematocrit 27.6 % (39.0-52.0); Hemoglobin 9.5 g/dL (13.0-18.0); Mean Corp Hgb Conc. 34.4 g/dL (33.0-37.0); Mean Corpuscular Volume 97.2 fL (80.0-94.0); Nucleated Red Blood Cells % 0 % (-); Platelet Count 222 10^3/uL (130-400); Red Cell Dist. Width 13.0 % (11.5-14.5)
[2024-11-23 09:23] LABS: PT 58.5 Sec (11.4-14.6)
[2024-11-23 09:33] LABS: INR 6.92
[2024-11-23 09:38] LABS: ALT (SGPT) 13 U/L (0-50); AST (SGOT) 18 U/L (17-59); Albumin 3.2 g/dl (3.5-5.0); Alkaline Phosphatase 94 U/L (38-126); Blood Urea Nitrogen 20 mg/dl (9-20); Calcium 8.5 mg/dl (8.4-10.2); Carbon Dioxide 25 mmol/L (22-30); Chloride 104 mmol/L (98-107); Glucose 87 mg/dl (70-99); Potassium 4.2 mmol/L (3.5-5.1); Sodium 133 mmol/L (135-145); Total Protein 5.7 g/dl (6.3-8.2); eGFR > 60.00
--- NOTE | 2024-11-23 10:16 | CM ---
Met with patient, and son, Derick, at bedside in the ED
CM Consult for Hospital Bed completed; order/clinicals, demographics faxed to [facility] # [phone]; son, Sotero, is primary contact # [phone]
Pharmacy verified: [facility] @ [address] [place] [address]
Patient lives w/ ; split level home; 2 steps to enter; 6 steps between levels; powder room on lower level; upper level bathroom has walk-in shower w/ bench, grab bar
PLOF: independent with personal care, ambulation, and stairs; drives; able to complete certified court interpreter
Son will transport home
NO SNF utilization history; Home Health in the past
[2024-11-23 10:53] LABS: Acetaminophen < 10 ug/ml (10-30)
[2024-11-23 11:18] VITALS: BP 124/74
--- NOTE | 2024-11-24 11:03 | CM ---
Addendum entered by Reena Fink 11/25/24 16:04:
Call to son/Sotero today who confirmed bed has been delivered by [employer]
Original Note:
Call from son/Sotero [phone] asking for update on hospital bed arrangements
He was made aware hospitals bed typically take 1-2 days for delivery as they are not considered life sustaining DME
Call to Chris/Marge- she will follow up with son directly, anticipated delivery today per Marge
== END 2024-11-23 11:18 | disposition home or self-care (01) ==
LOC: EMR 05:52
PROVIDERS: Registered Nurse; EMERGENCY PHYSICIAN Student in an Organized Health Care Education/Training Program
DX: M54.50 Low back pain, unspecified (principal); T45.515A Adverse effect of anticoagulants, initial encounter; W10.9XXA Fall (on) (from) unspecified stairs and steps, initial encounter; K21.9 Gastro-esophageal reflux disease without esophagitis; E03.9 Hypothyroidism, unspecified; E78.00 Pure hypercholesterolemia, unspecified; I10 Essential (primary) hypertension; I25.10 Atherosclerotic heart disease of native coronary artery without angina pectoris; Z79.01 Long term (current) use of anticoagulants; Z95.5 Presence of coronary angioplasty implant and graft; Z96.643 Presence of artificial hip joint, bilateral; Z96.653 Presence of artificial knee joint, bilateral; M19.90 Unspecified osteoarthritis, unspecified site
CPT/HCPCS: 99283; 80053; 80143; 85025; 85610

== ENCOUNTER → 2024-11-25 10:17 | Outpatient (REF) | payer MEDICARE, SELFPAY ==
[2024-11-25 12:40] LABS: INR 3.46; PT 34.6 Sec (11.4-14.6)
== END ==
LOC: HWLAB 10:17
PROVIDERS: ATTENDING PHYSICIAN Internal Medicine Cardiovascular Disease
DX: I48.19 Other persistent atrial fibrillation (principal)
CPT/HCPCS: 36415; 85610

== ENCOUNTER → 2024-12-01 09:48 | Outpatient (REF) | payer MEDICARE, SELFPAY ==
[2024-12-01 13:09] LABS: INR 2.89; PT 30.6 Sec (11.4-14.6)
== END ==
LOC: HWLAB 09:48
PROVIDERS: ATTENDING PHYSICIAN Internal Medicine Cardiovascular Disease
DX: I48.19 Other persistent atrial fibrillation (principal)
CPT/HCPCS: 36415; 85610

== ENCOUNTER 2024-12-02 19:08 | Emergency (ER) | payer MEDICARE, SELFPAY ==
[2024-12-02 19:21] VITALS: BP 153/63
[2024-12-02 19:56] LABS: Hematocrit 31.0 % (39.0-52.0); Hemoglobin 10.5 g/dL (13.0-18.0); Mean Corp Hgb Conc. 33.9 g/dL (33.0-37.0); Mean Corpuscular Volume 97.2 fL (80.0-94.0); Nucleated Red Blood Cells % 0 % (-); Platelet Count 288 10^3/uL (130-400); Red Cell Dist. Width 13.2 % (11.5-14.5)
[2024-12-02 20:22] LABS: ALT (SGPT) 29 U/L (0-50); AST (SGOT) 24 U/L (17-59); Albumin 3.9 g/dl (3.5-5.0); Alkaline Phosphatase 124 U/L (38-126); Blood Urea Nitrogen 26 mg/dl (9-20); Calcium 8.7 mg/dl (8.4-10.2); Carbon Dioxide 28 mmol/L (22-30); Chloride 95 mmol/L (98-107); Glucose 116 mg/dl (70-99); Lipase 96 U/L (23-300); Potassium 4.8 mmol/L (3.5-5.1); Sodium 129 mmol/L (135-145); Total Protein 6.6 g/dl (6.3-8.2); eGFR 52.84
--- NOTE | 2024-12-02 23:25 | ED.GENMED ---
History of Present Illness
General
Chief Complaint: Bowel Problem
Source: patient
Exam Limitations: none
Time Seen by Provider: 12/02/24 23:25
Nursing documentation reviewed up to this point in time: agreed with
History of Present Illness
History of Present Illness:
Note:
CHIEF COMPLAINT(S)
Constipation and abdominal fullness.
HISTORY OF PRESENT ILLNESS
The patient is an 89-year-old male with a past medical history of GERD, mitral regurg, hypothyroidism, anemia, neurogenic bladder, who presents who presents with a 10-day history of constipation. He has not had a bowel movement despite the
administration of various laxatives, including Colace, Senna, Dulcolax, and magnesium citrate. The patients family reports he was previously given oxycodone 5 mg, which was increased to 10 mg per his family doctors advice, due to severe back pain
from compression fracture. This increase in opioid medication led to constipation, as anticipated. A combination of Miralax and Colace was tried but proved insufficient. Despite these measures, the patient has had only minimal bowel movement,
suggesting partial relief. The family mentioned an episode of near lightheadedness while the patient was on the toilet earlier, raising concerns about possible bowel obstruction. The patient also describes a sensation of fullness, though he reports
no accompanying abdominal pain. A recent MRI was performed to assess back pain, possibly due to osteoarthritis or a lumbar vertebra compression fracture. The patient, however, does not report dysuria or urinary pain. No fevers or chills.
SOCIAL DETERMINANTS AFFECTING HEALTH
The family mentions concerns about the patients mobility, affecting their ability to administer an enema at home due to pain.
REVIEW OF SYSTEMS
- Gastrointestinal: Constipation for 10 days, sensation of abdominal fullness, occasional diarrhea after magnesium citrate administration.
- Musculoskeletal: Patient reports severe back pain historically managed with oxycodone, possibly due to osteoarthritis or a lumbar vertebra compression fracture.
PHYSICAL EXAM
Nursing notes reviewed and vital signs reviewed.
General: Patient is well appearing and in no acute distress; non-toxic
Skin: Warm and dry, no rashes or lesions
Head: Normocephalic, atraumatic
Eyes: Sclera non-icteric. EOMs intact.
Cardiac: Regular rate and rhythm, no murmurs
Pulm: Normal respiratory effort, no wheezes, rales, or rhonchi
Abdomen: No abdominal tenderness to palpation, no distention. Loose brown stool noted in rectal vault with no evidence of fecal impaction.
Neuro: CN II-XII intact, no focal neurologic deficits.
Psychiatric: Appropriate mood and affect.
PROBLEM LIST
Acute:
- Constipation
Chronic:
- Back pain potentially due to osteoarthritis or lumbar vertebra compression fracture
PLAN
1. Perform an abdominal examination to assess for fecal impaction.
2. Consider administration of an enema if impaction is detected and conservative measures fail to relieve constipation.
3. The patient might require assistance with positioning due to back discomfort during potential enema administration.
4. Continue monitoring for signs of obstruction despite current imaging indicating no acute issues.
DIFFERENTIAL DIAGNOSIS
The Differential Diagnosis includes, in no particular order and is not limited to:
1. Constipation secondary to opioid use
2. Bowel obstruction
3. Fecal impaction
4. Gastrointestinal motility disturbance
5. Diverticular disease
6. Intestinal pseudo-obstruction
7. Drug-induced constipation
8. Electrolyte imbalance
9. Dehydration-related bowel changes
10. Dietary fiber deficiency
CHART REVIEW
Reviewed ER/notation from 11/23/2024 patient seen for Coumadin toxicity
Reviewed discharge summary 5 patient seen for acute hematuria exacerbated by Coumadin
MDM/DISPOSITION
The patient is an 89-year-old male with a past medical history of GERD, mitral regurg, hypothyroidism, anemia, neurogenic bladder, who presents who presents with a 10-day history of constipation. He denies abdominal pain, nausea, vomiting. He has
been eating without any difficulty. On physical exam, he is well appearing, in no acute distress. He has a non-distended, soft abdomen. There is no evidence of impaction on rectal exam. Patient drank a container of magnesium citrate earlier in the
day and started to have bowel movements while in the emergency department. He had 2 looser stools and 2 well formed stools. He feels well. No indication for enema or further intervention at this time. Labs reviewed hemoglobin at baseline. Patient
has sodium of 129 patient does take diuretics, discussed follow up with pcp. Son expresses concern about patient constantly getting up to use the bathroom during the night and his safety getting to and from the bathroom. Patient does have a bedside
commode that we discussed placing beside his bed in the meantime. Patient's son requesting patient to be admitted so that someone can assist him to and from the commode. Discussed that this is not an indication for admission. Patient lives with his
son. Patient does have a walker that he does not use. Stressed importance of using walker and beside commode. I did place case management consult for patient to be called tomorrow to possibly set up home nursing care. Patient stable for discharge.
Past History
Past History
ED Past Medical History: CAD, GERD, HTN, Hypercholesterolemia, Hypothyroidism and Other (Arthritis)
ED Past Surgical History: Cardiac (PTCA with stent 2013) and Orthopedic (Laminectomy L4-5 1967, Discectomy 1988, Bilat hip replacement 2003, L4-5 laminectomy 2006, L knee replacement 2018. )
Patient has exhibited threatening behavior?: No
PSI?: No
Social History
Tobacco: Non-smoker
Alcohol: None
Personal:
Living: with family
Employment: Retired
Family History
Family History: Other (Noncontributory)
Review of Systems
Review of Systems
All Other Systems: ROS reviewed and negative except as documented in HPI and ROS
Phy Exam
Physical Exam
Physical Exam:
see hpi
Course
Orders/Labs/Results
Orders:
Orders
12/02/24 19:24
Abdomen Xray - 1 View [CR Abdomen - 1 View] Urgent
Comment:
Reason For Exam: constipation
12/02/24 19:43
Complete Blood Count/With Diff Urgent
Comprehensive Metabolic Panel Urgent
Lactic Acid Urgent
Lipase Urgent
12/03/24 01:12
Case Management Consult ONCE
Case Management Consult: VN/Home Care
Comment: home nursing care
Abnormal Lab Results
12/02/24
19:43
RBC 3.19 L 10^6/uL
(4.70-6.10)
Hgb 10.5 L g/dL
(13.0-18.0)
Hct 31.0 L %
(39.0-52.0)
MCV 97.2 H fL
(80.0-94.0)
MCH 32.9 H pg
(27.0-31.0)
Absolute Lymphs (auto) 0.7 L 10^3/uL
(1.2-3.4)
Absolute Monos (auto) 0.7 H 10^3/uL
(0.1-0.6)
Neutrophils % 80.8 H %
(42.2-75.2)
Lymphocytes % 8.7 L %
(20.5-51.1)
Sodium 129 L mmol/L
(135-145)
Chloride 95 L mmol/L
(98-107)
BUN 26 H mg/dl
(9-20)
Glucose 116 H mg/dl
(70-99)
12/02/24 19:43
12/02/24 19:43
Vital Signs
Initial and Last Documented VS:
Initial Vital Signs
Temp Pulse Resp BP Pulse Ox
97.7 F 65 16 153/63 97
12/02/24 19:21 12/02/24 19:21 12/02/24 19:21 12/02/24 19:21 12/02/24 19:21
Last Documented Vital Signs
Temp Pulse Resp BP Pulse Ox
98.5 F 85 18 153/63 100
12/03/24 01:39 12/03/24 01:39 12/03/24 01:39 12/02/24 19:21 12/03/24 01:39
*Pulse Oximetry
SaO2: 97
Oxygen Mode of Delivery: Room air
Patient hypoxic: no
*Critical Care Note
Total Time (30-74mins, 75-104mins- exclusive of procedures): Not Applicable
ED Attending Note
-
Portions of this chart may have been created with voice recognition software.� Occasional wrong word or��sound alike� substitutions may have occurred due to the inherent limitations of voice recognition software.
Discharge Plan
Departure
Patient Disposition: Home (Routine Discharge)
Date of Disposition: 12/03/24
Time of Disposition: 01:23
Patient with high blood pressure during this ER visit?: Yes
Condition: Good
Discharge Problem:
Constipation
Instructions: Constipation, Adult (DC), BLOOD PRESSURE
Prescriptions:
No Action
atorvastatin 40 MG tablet
40 mg PO DAILY
pantoprazole 40 MG tablet,delayed release (DR/EC)
40 mg PO DAILY
latanoprost 0.005 % Drops
1 drp LEFT EYE HS
furosemide 40 mg Tablet
40 mg PO DAILY Qty: 30 0RF
amiodarone [Pacerone] 200 mg tablet
200 mg PO DAILY
metoprolol succinate 50 mg Tablet Extended Release 24 Hr
50 mg PO DAILY
warfarin 2.5 mg Tablet
2.5 mg PO DAILY
Rx Instructions:
Two tabs (5mg) on Sundays
spironolactone 25 mg Tablet
25 mg PO DAILY
tamsulosin 0.4 mg Capsule
0.4 mg PO DAILY
levothyroxine 112 mcg Tablet
112 mcg PO DAILY
sulfamethoxazole-trimethoprim 800-160 mg Tablet
1 tab PO BID 4 Days Qty: 8 0RF
ferrous sulfate 325 mg (65 mg iron) tablet
325 mg PO NOON Qty: 30 0RF
ascorbic acid (vitamin C) [Vitamin C] 500 mg tablet
500 mg PO NOON Qty: 30 0RF
oxycodone 5 mg capsule
5 mg PO Q8H PRN (Reason: Pain) Qty: 10 0RF
Referrals:
Dmitri Arreola DO [Primary Care Provider, Family Practice]
Colton Lee CRNP [Family Provider]
Activity Restrictions/Additional Instructions:
Please keep commode at bedside. Please stay well-hydrated. You will receive a call to set up home nursing care. Please follow-up with your primary care provider in 1 week.
Your blood work and x-ray of the abdomen were unremarkable.
PLEASE RETURN EMERGENCY DEPARTMENT SHOULD YOU DEVELOP ABDOMINAL PAIN, FEVERS OR CHILLS, RECTAL BLEEDING, DARK TARRY STOOLS, LIGHTHEADEDNESS OF THE DIZZINESS, OR ANY OTHER SYMPTOMS WORRISOME TO YOU.
Interventions
Interventions:
*Risk Screen - Suicide Last Done: 12/03/24 00:05
*General Assessment Last Done: 12/03/24 00:05
*Neglect/Abuse Screening Last Done: 12/03/24 00:05
*ED- Fall Risk Assessment Last Done: 12/03/24 00:05
*ED COVID-19 Vaccine History Last Done: 12/03/24 00:05
*Nursing Disposition Last Done: 12/03/24 01:40
NF-Rllwks-Dfiwghuvvh Assessment Last Done: 12/03/24 01:07
Discharge Date and Time
Discharge Date/Time: 12/03/24 01:40
Print Language: SLOVAK
--- NOTE | 2024-12-03 09:52 | CM ---
Received CM consult for home care. Spoke to pt and his son Sotero, discussed home care and given choice of agencies. Both agreeable to [facility]. Referral sent via [facility]. Sotero requested that he be called to arrange visits [phone]. Instructed
them they should [facility] from [facility] by the end of the week, both verbalized understanding.
== END 2024-12-03 01:40 | disposition home or self-care (01) ==
LOC: EMR 19:08
PROVIDERS: EMERGENCY PHYSICIAN Emergency Medicine; PRIMARYCARE PHYSICIAN Family Medicine
DX: K59.00 Constipation, unspecified (principal); E03.9 Hypothyroidism, unspecified; E78.00 Pure hypercholesterolemia, unspecified; I10 Essential (primary) hypertension; I25.10 Atherosclerotic heart disease of native coronary artery without angina pectoris; Z95.5 Presence of coronary angioplasty implant and graft
CPT/HCPCS: 99284; 74018; 80053; 83605; 83690; 85025

== ENCOUNTER → 2024-12-09 09:06 | Outpatient (REF) | payer MEDICARE, SELFPAY ==
[2024-12-09 11:33] LABS: INR 3.14; PT 32.1 Sec (11.4-14.6)
[2024-12-09 11:52] LABS: ALT (SGPT) 23 U/L (0-50); AST (SGOT) 21 U/L (17-59); Albumin 3.3 g/dl (3.5-5.0); Alkaline Phosphatase 99 U/L (38-126); Blood Urea Nitrogen 22 mg/dl (9-20); Calcium 8.3 mg/dl (8.4-10.2); Carbon Dioxide 27 mmol/L (22-30); Chloride 101 mmol/L (98-107); Glucose 83 mg/dl (70-99); Potassium 4.4 mmol/L (3.5-5.1); Sodium 132 mmol/L (135-145); Total Protein 5.7 g/dl (6.3-8.2); eGFR 48.34
== END ==
LOC: HWLAB 09:06
PROVIDERS: ATTENDING PHYSICIAN Internal Medicine Cardiovascular Disease
DX: I48.19 Other persistent atrial fibrillation (principal)
CPT/HCPCS: 36415; 80053; 83880; 84439; 84443; 85610

== ENCOUNTER → 2024-12-16 07:06 | Outpatient (REF) | payer MEDICARE, SELFPAY ==
[2024-12-16 09:59] LABS: INR 2.05; PT 23.2 Sec (11.4-14.6)
== END ==
LOC: HWLAB 07:06
PROVIDERS: ATTENDING PHYSICIAN Internal Medicine Cardiovascular Disease
DX: I48.0 Paroxysmal atrial fibrillation (principal)
CPT/HCPCS: 36415; 85610

== ENCOUNTER → 2024-12-22 10:33 | Outpatient (REF) | payer MEDICARE, SELFPAY ==
[2024-12-22 15:23] LABS: INR 2.27; PT 25.1 Sec (11.4-14.6)
== END ==
LOC: HWLAB 10:33
PROVIDERS: ATTENDING PHYSICIAN Internal Medicine Cardiovascular Disease
DX: I48.0 Paroxysmal atrial fibrillation (principal)
CPT/HCPCS: 36415; 85610

== ENCOUNTER → 2024-12-26 09:16 | Outpatient (REF) | payer MEDICARE, SELFPAY | LOC: HWRCS 09:16 | PROVIDERS: ATTENDING PHYSICIAN Internal Medicine Cardiovascular Disease | DX: I50.32 Chronic diastolic (congestive) heart failure (principal); I34.0 Nonrheumatic mitral (valve) insufficiency; I34.2 Nonrheumatic mitral (valve) stenosis | CPT/HCPCS: 93306 ==

== ENCOUNTER → 2024-12-30 06:43 | Outpatient (REF) | payer MEDICARE, SELFPAY ==
[2024-12-30 10:16] LABS: INR 2.89; PT 30.2 Sec (11.4-14.6)
== END ==
LOC: HWLAB 06:43
PROVIDERS: ATTENDING PHYSICIAN Internal Medicine Cardiovascular Disease
DX: I48.19 Other persistent atrial fibrillation (principal)
CPT/HCPCS: 36415; 85610